=== PATIENT | male | born 1955 | race African-American/Black ===

== ENCOUNTER 2020-04-22 20:28 | Inpatient (IN) | payer OTHER ==
[2020-04-22 21:24] LABS: BASO % 0.7 % (0-2.0); EOS % 2.1 % (0-4.5); HEMOGLOBIN 13.8 GM/dL (11.7-16.9); LYMPH % 9.7 % (8-40); MCHC 32.2 g/dl (32.0-35.9); MEAN CELL VOLUME 80.5 fl (80-96); MEAN PLT VOLUME 7.8 fl (7.5-11.1); MONO % 7.9 % (3.8-10.2); NEUT % 79.6 % (42.8-82.8); PLATELET COUNT 248 K/MM3 (134-434); RBC 5.34 M/mm3 (4.00-5.60); RDW 16.9 % (11.9-15.9); WHITE BLOOD COUNT 13.6 K/mm3 (4.0-10.0)
[2020-04-22 21:48] LABS: POTASSIUM 4.1 mmol/L (3.5-5.1)
[2020-04-22 21:51] LABS: ALBUMIN 3.3 g/dl (3.4-5.0); BLOOD UREA NITROGEN 9.1 mg/dL (7-18); CALCIUM 8.9 mg/dL (8.5-10.1)
[2020-04-22 21:54] LABS: CREATININE 0.9 mg/dL (0.55-1.3)
[2020-04-22 21:55] LABS: BILIRUBIN,TOTAL 0.8 mg/dL (0.2-1); TOT PROT 7.1 g/dl (6.4-8.2)
[2020-04-22 21:57] LABS: EPI CELLS 3 /uL (0-25.1); HYALINE CASTS 1 /uL (0-3.1); PH,URINE >= 9.0 (5.0-8.0); URINE APPEARANCE CLOUDY; URINE BACTERIA 473 /uL (0-1359); URINE BILIRUBIN NEGATIVE (NEGATIVE); URINE COLOR YELLOW; URINE GLUCOSE (UA) NEGATIVE (NEGATIVE); URINE KETONE NEGATIVE (NEGATIVE); URINE LEUK ESTERASE 3+ (NEGATIVE); URINE NITRITE NEGATIVE (NEGATIVE); URINE PROTEIN 3+ (NEGATIVE); URINE WBC 2770 /uL (0-25.8)
[2020-04-22 22:32] LABS: URINE RBC 233 /uL (0-23.9); YEAST NEGATIVE (NEGATIVE)
[2020-04-23] MEDS ORDERED: MEROPENEM 1 GM in DEXTROSE 5%-WATER 100 ML IVPB ONE (01:34)
[2020-04-23] MEDS ORDERED: MEROPENEM 1 GM VIAL (RESTRICTED TO ID) IVPB ONE ×3 (01:41→17:10)
[2020-04-23] MEDS ORDERED: ACETAMINOPHEN 325 MG TABLET (FP) PO PRN (04:24)
[2020-04-23 05:38] VITALS: BMI 36.5
[2020-04-23] MEDS: TAMSULOSIN HCL 0.4 MG CAP PO SCH (08:15)
[2020-04-23] MEDS ORDERED: ESCITALOPRAM OXALATE 10 MG TABLET ONE (09:29)
[2020-04-23] MEDS ORDERED: DEXTROSE 5%-WATER 100 ML IVPB ONE ×2 (09:30→17:11)
[2020-04-23] MEDS ORDERED: PT OWN MED DRAWER 7, Y5N ONE (09:30)
[2020-04-23] MEDS: ESCITALOPRAM OXALATE 20 MG TABLET PO SCH (09:34)
[2020-04-23] MEDS: LISINOPRIL 5 MG TABLET PO SCH (09:34)
[2020-04-23] MEDS: SENNOSIDES 8.6MG TABLET (FP) PO SCH ×2 (09:34→09:49)
[2020-04-23] MEDS: MEROPENEM 1 GM in DEXTROSE 5%-WATER 100 ML IVPB SCH ×2 (09:35→17:15)
[2020-04-23] MEDS: HEPARIN NA (PORCINE) 5,000 UNITS/ML 1ML VIAL SQ SCH ×2 (09:36→21:03)
[2020-04-23 09:45] LABS: BASO % 0.5 % (0-2.0); EOS % 2.4 % (0-4.5); HEMATOCRIT 42.3 % (35.4-49); HEMOGLOBIN 13.8 GM/dL (11.7-16.9); LYMPH % 13.3 % (8-40); MCH 26.6 pg (25.7-33.7); MCHC 32.7 g/dl (32.0-35.9); MEAN CELL VOLUME 81.4 fl (80-96); MEAN PLT VOLUME 7.8 fl (7.5-11.1); NEUT % 75.8 % (42.8-82.8); PLATELET COUNT 228 K/MM3 (134-434); RBC 5.19 M/mm3 (4.00-5.60); RDW 16.7 % (11.9-15.9); WHITE BLOOD COUNT 10.4 K/mm3 (4.0-10.0)
[2020-04-23 09:56] LABS: POTASSIUM 3.8 mmol/L (3.5-5.1)
[2020-04-23 09:57] LABS: CALCIUM 8.7 mg/dL (8.5-10.1)
[2020-04-23 09:58] LABS: ALBUMIN 3.2 g/dl (3.4-5.0); BLOOD UREA NITROGEN 9.1 mg/dL (7-18)
[2020-04-23 10:01] LABS: CREATININE 0.9 mg/dL (0.55-1.3)
[2020-04-23 10:03] LABS: TOT PROT 6.9 g/dl (6.4-8.2)
[2020-04-24] MEDS ORDERED: DEXTROSE 5%-WATER 100 ML IVPB ONE ×2 (01:37→17:28)
[2020-04-24] MEDS ORDERED: MEROPENEM 1 GM VIAL (RESTRICTED TO ID) IVPB ONE ×2 (01:37→17:28)
[2020-04-24] MEDS: MEROPENEM 1 GM in DEXTROSE 5%-WATER 100 ML IVPB SCH ×3 (01:53→17:45)
[2020-04-24] MEDS ORDERED: ESCITALOPRAM OXALATE 10 MG TABLET ONE (09:35)
[2020-04-24] MEDS ORDERED: PT OWN MED DRAWER 7, Y5N ONE (09:36)
[2020-04-24] MEDS: HEPARIN NA (PORCINE) 5,000 UNITS/ML 1ML VIAL SQ SCH ×2 (09:52→21:25)
[2020-04-24] MEDS: TAMSULOSIN HCL 0.4 MG CAP PO SCH (09:52)
[2020-04-24] MEDS: SENNOSIDES 8.6MG TABLET (FP) PO SCH (09:52)
[2020-04-24] MEDS: LISINOPRIL 5 MG TABLET PO SCH (09:52)
[2020-04-24] MEDS: ESCITALOPRAM OXALATE 20 MG TABLET PO SCH (09:53)
[2020-04-25] MEDS ORDERED: DEXTROSE 5%-WATER 100 ML IVPB ONE ×3 (00:54→17:23)
[2020-04-25] MEDS ORDERED: MEROPENEM 1 GM VIAL (RESTRICTED TO ID) IVPB ONE ×3 (00:54→17:23)
[2020-04-25] MEDS: MEROPENEM 1 GM in DEXTROSE 5%-WATER 100 ML IVPB SCH ×3 (01:17→17:29)
[2020-04-25] MEDS: TAMSULOSIN HCL 0.4 MG CAP PO SCH (08:41)
[2020-04-25] MEDS ORDERED: ESCITALOPRAM OXALATE 10 MG TABLET ONE (09:18)
[2020-04-25] MEDS ORDERED: PT OWN MED DRAWER 7, Y5N ONE (09:18)
[2020-04-25] MEDS: ESCITALOPRAM OXALATE 20 MG TABLET PO SCH (09:23)
[2020-04-25] MEDS: LISINOPRIL 5 MG TABLET PO SCH (09:23)
[2020-04-25] MEDS: SENNOSIDES 8.6MG TABLET (FP) PO SCH (09:24)
[2020-04-25] MEDS: HEPARIN NA (PORCINE) 5,000 UNITS/ML 1ML VIAL SQ SCH ×2 (09:25→21:00)
[2020-04-25 13:02] LABS: BASO % 0.6 % (0-2.0); EOS % 3.5 % (0-4.5); HEMATOCRIT 43.3 % (35.4-49); HEMOGLOBIN 14.3 GM/dL (11.7-16.9); LYMPH % 16.6 % (8-40); MCH 26.5 pg (25.7-33.7); MEAN CELL VOLUME 80.3 fl (80-96); MEAN PLT VOLUME 7.9 fl (7.5-11.1); NEUT % 69.3 % (42.8-82.8); PLATELET COUNT 242 K/MM3 (134-434); RBC 5.39 M/mm3 (4.00-5.60); RDW 16.8 % (11.9-15.9); WHITE BLOOD COUNT 9.1 K/mm3 (4.0-10.0)
[2020-04-25 13:10] LABS: POTASSIUM 3.9 mmol/L (3.5-5.1)
[2020-04-25 13:11] LABS: CALCIUM 8.6 mg/dL (8.5-10.1)
[2020-04-25 13:12] LABS: ALBUMIN 3.3 g/dl (3.4-5.0)
[2020-04-25 13:15] LABS: CREATININE 0.8 mg/dL (0.55-1.3)
[2020-04-25 13:17] LABS: BILIRUBIN,TOTAL 0.6 mg/dL (0.2-1); TOT PROT 7.1 g/dl (6.4-8.2)
[2020-04-26] MEDS ORDERED: MEROPENEM 1 GM VIAL (RESTRICTED TO ID) IVPB ONE ×3 (01:00→17:45)
[2020-04-26] MEDS ORDERED: DEXTROSE 5%-WATER 100 ML IVPB ONE ×3 (01:00→17:46)
[2020-04-26] MEDS: MEROPENEM 1 GM in DEXTROSE 5%-WATER 100 ML IVPB SCH ×3 (01:34→17:49)
[2020-04-26] MEDS: TAMSULOSIN HCL 0.4 MG CAP PO SCH (08:39)
[2020-04-26] MEDS ORDERED: ESCITALOPRAM OXALATE 10 MG TABLET ONE (09:51)
[2020-04-26] MEDS ORDERED: PT OWN MED DRAWER 7, Y5N ONE (09:51)
[2020-04-26] MEDS: ESCITALOPRAM OXALATE 20 MG TABLET PO SCH (10:02)
[2020-04-26] MEDS: SENNOSIDES 8.6MG TABLET (FP) PO SCH (10:03)
[2020-04-26] MEDS: HEPARIN NA (PORCINE) 5,000 UNITS/ML 1ML VIAL SQ SCH ×2 (10:03→21:02)
[2020-04-26] MEDS: LISINOPRIL 5 MG TABLET PO SCH (10:06)
[2020-04-27] MEDS ORDERED: MEROPENEM 1 GM VIAL (RESTRICTED TO ID) IVPB ONE ×2 (01:05→09:33)
[2020-04-27] MEDS ORDERED: DEXTROSE 5%-WATER 100 ML IVPB ONE ×2 (01:06→09:33)
[2020-04-27] MEDS: MEROPENEM 1 GM in DEXTROSE 5%-WATER 100 ML IVPB SCH ×2 (01:15→09:38)
[2020-04-27] MEDS ORDERED: ESCITALOPRAM OXALATE 10 MG TABLET ONE (09:33)
[2020-04-27] MEDS: ESCITALOPRAM OXALATE 20 MG TABLET PO SCH (09:37)
[2020-04-27] MEDS: LISINOPRIL 5 MG TABLET PO SCH (09:37)
[2020-04-27] MEDS: SENNOSIDES 8.6MG TABLET (FP) PO SCH (09:37)
[2020-04-27] MEDS: HEPARIN NA (PORCINE) 5,000 UNITS/ML 1ML VIAL SQ SCH (09:38)
[2020-04-27] MEDS: TAMSULOSIN HCL 0.4 MG CAP PO SCH (09:38)
[2020-04-27 11:49] VITALS: BP 131/85; PULSE 75; TEMP 98.6
== END 2020-04-27 15:00 | DRG 699 ==
LOC: JER 20:28 → JERBED 04-23 01:32 → J8W 04-23 04:45
PROVIDERS: ADMIT Internal Medicine; ATTEND Internal Medicine
DX: T83.592A Infection and inflammatory reaction due to indwelling ureteral stent, initial encounter (principal); N39.0 Urinary tract infection, site not specified; Z16.12 Extended spectrum beta lactamase (ESBL) resistance; G35 Multiple sclerosis; N40.0 Benign prostatic hyperplasia without lower urinary tract symptoms; F32.9 Major depressive disorder, single episode, unspecified; D72.829 Elevated white blood cell count, unspecified; I10 Essential (primary) hypertension; Y83.9 Surgical procedure, unspecified as the cause of abnormal reaction of the patient, or of later complication, without mention of misadventure at the time of the procedure
CPT/HCPCS: 36415; 74019-TC-FY; 76700-TC; 80053; 81003; 85025; 87040; 87086; 87186; 93005; 93010; 97116-GP; 97161-GP; 99285-25; C9803; J1644; U0003